=== PATIENT | female | born 1940 | race Caucasian/White ===

== ENCOUNTER → 2021-03-11 | Outpatient (CLI) | payer MEDICARE, OTHER ==
[~2021-03-11] MED LIST: MIRA3350 PO; SENN-52 PO
--- NOTE | 2021-03-11 16:05 | REP ---
INDICATION: PAIN IN THORACIC SPINE. COMPARISON: Chest radiograph 05/10/2012. TECHNIQUE: Three AP and lateral views thoracic spine. FINDINGS: There is increased thoracic kyphosis with moderate curvature of the thoracic spine convex to the right. There is no evidence of compression fracture. There is mild to moderate diffuse spurring of the vertebral bodies. There is mild to moderate diffuse disc space narrowing with subchondral sclerosis. There is diffuse osteopenia. Metallic clips are seen in the axillary soft tissues bilaterally. IMPRESSION: Osteopenia, diffuse degenerative changes, moderate right scoliosis and accentuated kyphosis. No acute fracture identified radiographically. <Electronically signed by Jamin Ahuja > 03/11/21 [id number]
--- NOTE | 2021-03-11 16:08 | REP ---
INDICATION: PAIN IN THORACIC SPINE. COMPARISON: Chest 05/10/2012. TECHNIQUE: Supine and erect views the abdomen, frontal view chest. FINDINGS: There is no evidence of free intraperitoneal air. There is no evidence of bowel obstruction. No dilated small bowel loops are seen. There is moderate fecal material in the rectosigmoid colon. Multiple phleboliths are seen in the pelvis. There are degenerative changes of the spine diffusely with curvature of the thoracic spine convex to the right and lumbar spine convex to the left. There is mild linear fibro atelectatic change in each lung base. There is mild cardiomegaly. IMPRESSION: No free air or obstruction. No infiltrate in either lung. <Electronically signed by Jamin Ahuja > 03/11/21 [id number]
[2021-03-11 17:20] LABS: BASO % 0.5 % (0.0-1.0); EOS # 0.1 10^3/uL (0.0-0.5); EOS % 1.5 % (0.0-3.0); HEMATOCRIT 25.6 % (36.0-47.0); LYMPH # 1.3 10^3/uL (1.5-5.0); LYMPH % 20.6 % (24.0-44.0); MEAN CORPUSCULAR HEMOGLOBIN 20.6 pg (27.0-33.0); MEAN CORPUSCULAR HGB CONC 27.3 g/dl (32.0-36.5); MEAN CORPUSCULAR VOLUME 75.5 fl (80.0-96.0); MONO # 0.7 10^3/uL (0.0-0.8); MONO % 11.4 % (2.0-8.0); NEUTROPHILS % 65.7 % (36.0-66.0); PLATELET COUNT, AUTOMATED 416 10^3/uL (150-450); RED BLOOD COUNT 3.39 10^6/uL (4.00-5.40); WHITE BLOOD COUNT 6.1 10^3/uL (4.0-10.0)
[2021-03-11 17:38] LABS: ALBUMIN 3.7 GM/DL (3.2-5.2); ALT/SGPT 23 U/L (12-78); BILIRUBIN,TOTAL 0.3 MG/DL (0.2-1.0); BLOOD UREA NITROGEN 18 MG/DL (7-18); CALCIUM LEVEL 8.6 MG/DL (8.8-10.2); CARBON DIOXIDE LEVEL 30 MEQ/L (21-32); CHLORIDE LEVEL 110 MEQ/L (98-107); CREATININE FOR GFR 0.72 MG/DL (0.55-1.30); GLOMERULAR FILTRATION RATE > 60.0 (>32); GLUCOSE, FASTING 79 MG/DL (70-100); POTASSIUM SERUM 4.3 MEQ/L (3.5-5.1); SODIUM LEVEL 144 MEQ/L (136-145); TOTAL PROTEIN 7.1 GM/DL (6.4-8.2)
[2021-03-11 17:39] LABS: FERRITIN 5 NG/ML (8-252); IRON (FE) 17 UG/DL (50-170); PERCENT SATURATION 3.2 % (13.2-45.0); TOTAL IRON BINDING CAPACITY 527 UG/DL (250-450)
[2021-03-11 17:53] LABS: ERYTHROCYTE SEDIMENTATION RATE 54 mm/hr (0-30)
== END ==
LOC: M PLAIMG 14:48
PROVIDERS: ATTEND Family Medicine
DX: M85.88 Other specified disorders of bone density and structure, other site (principal); M51.34 Other intervertebral disc degeneration, thoracic region; M41.9 Scoliosis, unspecified; K62.5 Hemorrhage of anus and rectum
CPT/HCPCS: 36415; 72072; 74021; 80053; 82270; 82728; 83550; 84443; 85025; 85652; 86140; G0463

== ENCOUNTER 2021-03-12 13:25 | Observation (INO) | payer OTHER ==
[2021-03-12] VITALS (8 sets, daily range): BP systolic 140–171; BP diastolic 69–99
[~2021-03-12] VITALS: Ht 149.9 cm; Wt 70.3 kg
[2021-03-12] MEDS ORDERED: MIRA3350 PO (13:36)
[2021-03-12] MEDS ORDERED: NS 500 ML IV ONE (14:15)
[2021-03-12 16:07] LABS: BASO % 0.6 % (0.0-1.0); EOS # 0.1 10^3/uL (0.0-0.5); EOS % 1.4 % (0.0-3.0); HEMATOCRIT 25.8 % (36.0-47.0); HEMOGLOBIN 7.2 g/dl (12.0-15.5); LYMPH # 1.3 10^3/uL (1.5-5.0); LYMPH % 27.3 % (24.0-44.0); MEAN CORPUSCULAR HEMOGLOBIN 20.6 pg (27.0-33.0); MEAN CORPUSCULAR HGB CONC 27.9 g/dl (32.0-36.5); MEAN CORPUSCULAR VOLUME 73.7 fl (80.0-96.0); MONO # 0.5 10^3/uL (0.0-0.8); MONO % 9.2 % (2.0-8.0); NEUTROPHILS % 61.1 % (36.0-66.0); PLATELET COUNT, AUTOMATED 422 10^3/uL (150-450); WHITE BLOOD COUNT 4.9 10^3/uL (4.0-10.0)
[2021-03-12 16:19] LABS: INR 0.97; PROTHROMBIN TIME 13.1 SECONDS (12.5-14.3)
[2021-03-12 16:20] LABS: PARTIAL THROMBOPLASTIN TIME 29.9 SECONDS (24.2-38.5)
[2021-03-12] MEDS ORDERED: MOM 30ML SUSPENSION UDC PO PRN (16:45)
[2021-03-12] MEDS ORDERED: ACETAMINOPHEN TAB 650MG DOSE (2X325MG) PO PRN (16:45)
[2021-03-12] MEDS ORDERED: MAALOX 30 ML SUSP *UDC PO PRN (16:45)
[2021-03-12] MEDS: GASTROGRAFIN SOLUTION 30ML PO SCH ×2 (16:45→17:30)
[2021-03-12] MEDS ORDERED: FLEET ENEMA PR PRN (17:20)
--- NOTE | 2021-03-12 17:21 | HPEPDOC ---
[facility] Medical History & Physical Date of Admission Mar 12, 2021 Date of Service: Mar 12, 2021 Primary Care Physician: JESSICA KERNS DO Attending Physician: MARGARET SUTHERLAND DO History and Physical CHIEF COMPLAINT: Anemia HISTORY OF PRESENT ILLNESS: Patient is an 80-year-old female who has not been seen by a doctor In many years and decided to establish care with a new PCP. She is accompanied in the room by her son who also provides some of the history. On routine lab work she was found to have anemia with a hemoglobin at 7.0. Repeat hemoglobin in the emergency department today is confirmatory and is at 7.2. Additionally she also reports that she suffers from chronic constipation, she estimates that she only has a bowel movement approximately every 4-6 weeks, and when she does it is quite painful. Both she and her son also mentioned that she does have blood in her bowel movements, and she does not know how long this has been going on for, but it sounds like it has been quite a while, perhaps months to years. Upon palpation of her abdomen she does have a few areas particularly in the left lower quadrant and the right mid quadrant that are tender to deep palpation. CODE STATUS: In the absence of a MOLST form, she is full code at this time. In speaking with her and her son she may want to be DNR or DNI, but they will discuss this issue amongst themselves and also with her primary care provider. PAST MEDICAL HISTORY: Remote history of breast cancer status post chemo, radiation, and bilateral mastectomy Back fracture 60 years ago PAST SURGICAL HISTORY: Bilateral mastectomy 2010 SOCIAL HISTORY: Denies tobacco use, alcohol use, or illicit drug use. FAMILY HISTORY: Noncontributory due to the patient's advanced age. Per medical record isabel arently she does have a sister with breast cancer as well as tongue cancer REVIEW OF SYSTEMS: Constitutional: Patient denies fevers, chills, night sweats, recent weight gain/loss. HEENT: Patient denies blurred or double vision, transient visual disturbances, postnasal drip, epistaxis, sore throat, difficulty chewing or swallowing food. Cardiovascular: Patient denies chest discomfort/pain, palpitations, exertional dyspnea, orthopnea, edema of the extremities, claudication. Respiratory: Patient denies dyspnea, wheezing, cough, hemoptysis, sputum production. Gastrointestinal: Patient denies nausea, vomiting, diarrhea. she does admit to constipation, abdominal pain, hematochezia. PHYSICAL EXAMINATION: General: Awake, alert, she appears to be a fairly good historian. She is in no acute distress at this time. HEENT: Head normocephalic atraumatic, conjunctiva are pink, sclera are nonicteric, buccal mucosa is pink and moist with no lesions in the oropharynx. Hearing is grossly intact to conversation. Respiratory: Clear to auscultation bilaterally with no wheezes, rales, or rhonchi. Cardiovascular: Regular rate and rhythm, with no rubs, gallops, or murmur. Abdomen: Soft, minimally tender in the left lower quadrant in the right middle quadrant to deep palpation nondistended, no hepatosplenomegaly appreciated. Bowel sounds present. Extremities: 2+ pulses in the radial and dorsalis pedis bilaterally. No evidence of clubbing or cyanosis. IMAGING: CT of the abdomen and pelvis has been ordered by the ED provider, results are not back yet for this. ASSESSMENT: Severe anemia Constipation Abdominal pain Rectal bleeding DVT prohylaxis: Teds and Sequentials given bleeding risk PLAN: We will admit the patient to [facility] under observation status at this time. CT scan of the abdomen is pending. Will order 2 units of blood, and recheck labs in the morning. Pending the results of the CT scan, she may need colonoscopy, however since she is stable I suspect that we might be able to do this as an outpatient. Nevertheless, given her significant constipation, will start her on Senokot-S and milk of magnesia, and she may also have an enema if she would like help with starting a bowel movement. Vital Signs Vital Signs Date Time Temp Pulse Resp B/P (MAP) Pulse Ox O2 Delivery O2 Flow Rate FiO2 03/12/21 13:25 97.4 79 20 146/91 (109) 99 Room Air Laboratory Data Labs 24H Laboratory Tests 2 03/12/21 14:49: Coronavirus (COVID-19)(PCR) NEGATIVE 03/12/21 15:51: Immature Granulocyte % (Auto) 0.4, Neutrophils (%) (Auto) 61.1, Lymphocytes (%) (Auto) 27.3, Monocytes (%) (Auto) 9.2H, Eosinophils (%) (Auto) 1.4, Basophils (%) (Auto) 0.6, Neutrophils # (Auto) 3.0, Lymphocytes # (Auto) 1.3L, Monocytes # (Auto) 0.5, Eosinophils # (Auto) 0.1, Basophils # (Auto) 0.0, Nucleated Red Blood Cells % (auto) 0.0, Prothrombin Time 13.1, Prothromb Time International Ratio 0.97, Activated Partial Thromboplast Time 29.9 03/12/21 16:03: POC Glucose (Misc Panel) 87, POC Sodium (Misc Panel) 141, POC Potassium (Misc Panel) 4.0, POC Chloride (Misc Panel) 103, POC Total CO2 (Misc Panel) 27.0, POC Blood Urea Nitrogen (Misc Panel 19, POC Ionized Calcium (Misc Panel) 4.8, POC Creatinine (Misc Panel) 0.6, POC Hematocrit (Misc Panel) 25.0L CBC/BMP Laboratory Tests 03/12/21 15:51 Home Medications Scheduled PRN Polyethylene Glycol 3350 (Miralax) 119 Gm Powder, 17 GRAM PO DAILY PRN for CONSTIPATION dissolve in water Allergies Coded Allergies: No Known Allergies (Unverified , 03/12/21) A-FIB/CHADSVASC A-FIB History Current/History of A-Fib/PAF?: No MARGARET SUTHERLAND DO Mar 12, 2021 17:21
[2021-03-12] MEDS ORDERED: ISOVUE-370 76% 100ML VIAL As Ordered ONE (17:50)
[2021-03-12] MEDS ORDERED: MIRALAX *UNIT DOSE* 17GM PACKET PO PRN (18:40)
--- NOTE | 2021-03-12 18:43 | REPVR ---
PROCEDURE INFORMATION: Exam: CT Abdomen And Pelvis With Contrast Exam date and time: 03/12/2021 6:15 PM Age: 80 years old Clinical indication: Abdominal pain; Additional info: Abd pain, anemia TECHNIQUE: Imaging protocol: Computed tomography of the abdomen and pelvis with contrast. Radiation optimization: All CT scans at this facility use at least one of these dose optimization techniques: automated exposure control; mA and/or kV adjustment per patient size (includes targeted exams where dose is matched to clinical indication); or iterative reconstruction. Contrast material: ISOVUE 370; Contrast volume: 100 ml; Contrast route: INTRAVENOUS (IV); COMPARISON: CR Abdomen,Flat Upright,PA CHEST 03/11/2021 3:20 PM FINDINGS: Lungs: No suspicious mass or airspace process in the visualized lung bases. Liver: Liver appears normal with no focal abnormality. Gallbladder and bile ducts: Gallbladder is present and shows no evidence of gallstone. Pancreas: Pancreas appears normal. No focal mass or peripancreatic inflammation. Spleen: Spleen appears homogeneous without focal mass. Adrenal glands: Adrenal glands are normal in appearance. Kidneys and ureters: Kidneys appear normal, with no stone, solid mass or hydronephrosis. Stomach and bowel: No evidence of small bowel obstruction. Large volume of stool is seen throughout the colon. Terminal ileum has normal appearance. Diverticular changes are present within the colon without inflammation. Appendix: No evidence of appendicitis. Intraperitoneal space: No pneumoperitoneum. Vasculature: Atherosclerotic change present in the aorta, without aneurysm. Main portal and splenic veins enhance normally. Lymph nodes: No enlarged lymph nodes. Urinary bladder: Urinary bladder appears normal. Reproductive: Female reproductive organs appear unremarkable. Bones/joints: Bony structures are normal except for lumbar spine degenerative disc changes. Soft tissues: No intra-abdominal hematoma. No pelvic hematoma. Other findings: No evidence of hypovolemia IMPRESSION: 1. No acute surgical or inflammatory intra-abdominal or pelvic process. No explanation for anemia and acute abdominal pain. 2. Colonic diverticulosis without evidence of active inflammation 3. Prominent colonic stool, suggesting perhaps an element of constipation Electronically signed by: Corey Pedroza On 03/12/2021 18:43:08 PM
[2021-03-12] MEDS: SENOKOT S TAB PO SCH (20:37)
[2021-03-13 00:33] VITALS: BP 141/71
[2021-03-13 01:22] VITALS: BP 144/67
[2021-03-13 02:22] VITALS: BP 143/65
[2021-03-13 06:57] LABS: HEMATOCRIT 32.9 % (36.0-47.0); MEAN CORPUSCULAR HEMOGLOBIN 22.9 pg (27.0-33.0); MEAN CORPUSCULAR HGB CONC 30.4 g/dl (32.0-36.5); MEAN CORPUSCULAR VOLUME 75.5 fl (80.0-96.0); PLATELET COUNT, AUTOMATED 390 10^3/uL (150-450); RED BLOOD COUNT 4.36 10^6/uL (4.00-5.40); WHITE BLOOD COUNT 6.8 10^3/uL (4.0-10.0)
[2021-03-13 07:13] LABS: BLOOD UREA NITROGEN 22 MG/DL (7-18); CALCIUM LEVEL 8.7 MG/DL (8.8-10.2); CARBON DIOXIDE LEVEL 27 MEQ/L (21-32); CHLORIDE LEVEL 109 MEQ/L (98-107); CREATININE FOR GFR 0.71 MG/DL (0.55-1.30); GLOMERULAR FILTRATION RATE > 60.0 (>32); GLUCOSE, FASTING 79 MG/DL (70-100); POTASSIUM SERUM 4.4 MEQ/L (3.5-5.1); SODIUM LEVEL 143 MEQ/L (136-145)
[2021-03-13] MEDS: SENOKOT S TAB PO SCH (08:12)
[2021-03-13] MEDS ORDERED: SENN-52 PO (08:30)
[2021-03-13] MEDS ORDERED: ENOXAPARIN 40MG/0.4ML SYRINGE (J1650 PER 10MG) SC SCH (09:00)
--- NOTE | 2021-03-13 11:15 | DS.PDOC ---
Discharge Summary General Date of Admission Mar 12, 2021 at 13:26 Date of Discharge 03/13/2021 Discharge Summary PRIMARY CARE PHYSICIAN: Dr. Gerson Mensah DO ATTENDING AT TIME OF DISCHARGE: Dr. Margaret Sutherland DO DISCHARGE DIAGNOS(E)S: Severe microcytic anemia, consistent with iron deficiency anemia, most likely secondary to blood loss. Constipation Abdominal pain Rectal bleeding with a history of hemorrhoids HPI & HOSPITAL COURSE: Patient had not seen a primary care provider for almost a decade, and decided to establish care. On routine laboratory examination it was found that she had severe anemia with a hemoglobin at 7.0. This was confirmed when she presented to the ER on the following day where her hemoglobin was found to be 7.2. She does have a longstanding history of constipation, she reports that she only has a bowel movement approximately every 4-6 weeks, and when she does it is quite painful and she does notice some blood with her stool as well. She does not notice any bleeding in the interim. Fecal occult digital rectal examination were performed in the emergency department which confirmed the presence of blood and hemorrhoids. Iron studies show a low iron, elevated TIBC, and low ferritin which is consistent with iron deficiency anemia, and correlating this with her history it is most likely secondary to blood loss with bowel movements. CT scan of the abdomen and pelvis were both oral and IV contrast was performed and there was no obvious etiology for anemia and acute abdominal pain. Nevertheless, I still recommend that she be started on stool softeners (Miralax had already been ordered by her PCP, I will also send a script to her pharmacy for Senokot S), a nd would also recommend that she be scheduled for an outpatient colonoscopy. PHYSICAL EXAMINATION ON DISCHARGE: GENERAL: Awake, alert. She is in no acute distress at this time. CARDIOVASCULAR EXAMINATION: Regular rate and rhythm, with no rubs, gallops, or murmur. RESPIRATORY EXAMINATION: Clear to auscultation bilaterally with no wheezes, rales, or rhonchi. ABDOMINAL EXAMINATION: Soft, minimally tender, nondistended. Bowel sounds present. EXTREMITIES: No clubbing or edema noted. 2+ pulses in the radial bilaterally. DISPOSITION: Home DISCHARGE INSTRUCTIONS: Follow-up with primary care physician within 7-10 days. Diet and activity as tolerated. If symptoms return, or if you experience worsening of your symptoms, please call your doctor or return to the emergency department. ITEMS THAT NEED OUTPATIENT FOLLOWUP: Treatment for constipation Recommend outpatient colonoscopy Follow-up regarding iron deficiency anemia, most likely secondary to blood loss Vital Signs/I&Os Vital Signs Date Time Temp Pulse Resp B/P (MAP) Pulse Ox O2 Delivery O2 Flow Rate FiO2 03/13/21 02:22 97.8 81 14 143/65 98 Room Air I&O- Last 24 Hours up to 6 AM 03/13/21 05:59 Intake Total 1700 ml Output Total 0 ml Balance 1700 ml Laboratory Data Labs 24H Laboratory Tests 2 03/12/21 14:49: Coronavirus (COVID-19)(PCR) NEGATIVE 03/12/21 15:51: Immature Granulocyte % (Auto) 0.4, Neutrophils (%) (Auto) 61.1, Lymphocytes (%) (Auto) 27.3, Monocytes (%) (Auto) 9.2H, Eosinophils (%) (Auto) 1.4, Basophils (%) (Auto) 0.6, Neutrophils # (Auto) 3.0, Lymphocytes # (Auto) 1.3L, Monocytes # (Auto) 0.5, Eosinophils # (Auto) 0.1, Basophils # (Auto) 0.0, Nucleated Red Blood Cells % (auto) 0.0, Prothrombin Time 13.1, Prothromb Time International Ratio 0.97, Activated Partial Thromboplast Time 29.9 03/12/21 16:03: POC Glucose (Misc Panel) 87, POC Sodium (Misc Panel) 141, POC Potassium (Misc Panel) 4.0, POC Chloride (Misc Panel) 103, POC Total CO2 (Misc Panel) 27.0, POC Blood Urea Nitrogen (Misc Panel 19, POC Ionized Calcium (Misc Panel) 4.8, POC Creatinine (Misc Panel) 0.6, POC Hematocrit (Misc Panel) 25.0L 03/13/21 06:22: Nucleated Red Blood Cells % (auto) 0.0, Anion Gap 7L, Glomerular Filtration Rate > 60.0, Calcium Level 8.7L CBC/BMP Laboratory Tests 03/12/21 15:51 03/13/21 06:22 Discharge Medications Scheduled Sennosides/Docusate Sodium (Senna Plus Tablet) 1 Each Tablet, 2 TAB PO DAILY Scheduled PRN Polyethylene Glycol 3350 (Miralax) 119 Gm Powder, 17 GRAM PO DAILY PRN for CONSTIPATION, (Reported) dissolve in water Allergies Coded Allergies: No Known Allergies (Unverified , 03/12/21) MARGARET SUTHERLAND DO Mar 13, 2021 11:07
--- NOTE | 2021-03-13 21:20 | ECGEPIP ---
[facility] - ED Test Date: 2021-03-12 Pat Name: SANFORD ABBASI Department: Room: - Gender: Female Payroll And Benefits Specialist: CESAR : 1940 Requested By: FRANCINE LOU PA-C. Order Number: [id number] Reading MD: Gloria Goodson Measurements Intervals [place] Rate: 54 P: 23 RI: 146 QRS: 3 QRSD: 86 T: 20 QT: 462 QTc: 438 Interpretive Statements Sinus bradycardia NSTTW abnormalities No prior Electronically Signed on 03-13-2021 21:20:30 EDT by Gloria Goodson
== END 2021-03-13 11:38 | disposition home or self-care (01) ==
LOC: M ED 13:25 → M ED INP 13:26 → M MSPAV 18:50
PROVIDERS: ADMIT Internal Medicine; ATTEND Neuromusculoskeletal Medicine & OMM
DX: D50.9 Iron deficiency anemia, unspecified (principal); K59.09 Other constipation; R10.9 Unspecified abdominal pain; K62.5 Hemorrhage of anus and rectum; R00.1 Bradycardia, unspecified; Z87.19 Personal history of other diseases of the digestive system; Z85.3 Personal history of malignant neoplasm of breast; Z90.13 Acquired absence of bilateral breasts and nipples; Z79.899 Other long term (current) drug therapy; Z87.81 Personal history of (healed) traumatic fracture
CPT/HCPCS: 36415; 36430; 74177; 80047; 80048; 85025; 85027; 85610; 85730; 86850; 86900; 86901; 86920; 93005; 93041; 99285; G0378; P9016; Q9963; Q9967; U0002

== ENCOUNTER → 2021-06-15 | Outpatient (CLI) | payer MEDICARE ==
[2021-06-15 18:01] LABS: BASO # 0.1 10^3/uL (0.0-0.2); BASO % 0.9 % (0.0-1.0); EOS % 0.7 % (0.0-3.0); HEMATOCRIT 35.3 % (36.0-47.0); HEMOGLOBIN 10.7 g/dl (12.0-15.5); LYMPH # 1.3 10^3/uL (1.5-5.0); LYMPH % 22.9 % (24.0-44.0); MEAN CORPUSCULAR HEMOGLOBIN 26.8 pg (27.0-33.0); MEAN CORPUSCULAR HGB CONC 30.3 g/dl (32.0-36.5); MEAN CORPUSCULAR VOLUME 88.3 fl (80.0-96.0); MONO # 0.5 10^3/uL (0.0-0.8); MONO % 8.5 % (2.0-8.0); NEUTROPHILS # 3.9 10^3/uL (1.5-8.5); NEUTROPHILS % 66.8 % (36.0-66.0); PLATELET COUNT, AUTOMATED 337 10^3/uL (150-450); WHITE BLOOD COUNT 5.8 10^3/uL (4.0-10.0)
[2021-06-15 18:53] LABS: BLOOD UREA NITROGEN 22 MG/DL (7-18); CREATININE FOR GFR 0.66 MG/DL (0.55-1.30); FERRITIN 8 NG/ML (8-252); GLOMERULAR FILTRATION RATE > 60.0 (>32); IRON (FE) 38 UG/DL (50-170); PERCENT SATURATION 7.5 % (13.2-45.0); TOTAL IRON BINDING CAPACITY 508 UG/DL (250-450)
[2021-06-15 19:00] LABS: VITAMIN B12 LEVEL 269 PG/ML
[2021-06-15 19:02] LABS: FOLATE 12.9 NG/ML
== END ==
LOC: M PLALAB 14:46
PROVIDERS: ATTEND Internal Medicine Gastroenterology
DX: K62.5 Hemorrhage of anus and rectum (principal)
CPT/HCPCS: 36415; 82565; 82607; 82728; 82746; 83550; 84520; 85025; G0463

== ENCOUNTER → 2021-08-25 | Outpatient (CLI) | payer MEDICARE | LOC: M LABSMTC 10:56 | PROVIDERS: ATTEND Anesthesiology | DX: Z01.812 Encounter for preprocedural laboratory examination (principal); Z11.52 Encounter for screening for COVID-19 ==

== ENCOUNTER 2021-08-30 10:18 | Day surgery (SDC) | payer MEDICARE ==
[~2021-08-30] VITALS: Ht 160 cm; Wt 67.1 kg
[~2021-08-30 10:18] MED LIST changes: +NS 1,000 ML IV ONE
[2021-08-30] MEDS ORDERED: LIDOCAINE 2% 100MG/5ML SDV (FOR ANES.) As Ordered ONE (11:32)
[2021-08-30] MEDS ORDERED: propofoL 200 MG/20 ML VIAL As Ordered ONE ×2 (11:32→11:56)
[2021-08-30] MEDS ORDERED: GLYCOPYRROLATE INJ 0.2 MG/ML 2 ML VIAL As Ordered ONE (11:32)
[2021-08-30 13:10] VITALS: BP 159/72
== END 2021-08-30 13:40 | disposition home or self-care (01) ==
LOC: M OPP 10:18
PROVIDERS: ATTEND Internal Medicine Gastroenterology
DX: K57.30 Diverticulosis of large intestine without perforation or abscess without bleeding (principal); K64.8 Other hemorrhoids; D50.9 Iron deficiency anemia, unspecified; R19.4 Change in bowel habit; K31.89 Other diseases of stomach and duodenum; K44.9 Diaphragmatic hernia without obstruction or gangrene; K21.00 Gastro-esophageal reflux disease with esophagitis, without bleeding

== ENCOUNTER → 2021-10-14 | Outpatient (CLI) | payer MEDICARE ==
[~2021-10-14] MED LIST changes: -NS 1,000 ML IV ONE
[2021-10-14 17:00] LABS: BASO % 0.3 % (0.0-1.0); EOS # 0.1 10^3/uL (0.0-0.5); EOS % 1.5 % (0.0-3.0); HEMATOCRIT 31.2 % (36.0-47.0); HEMOGLOBIN 9.5 g/dl (12.0-15.5); LYMPH # 1.6 10^3/uL (1.5-5.0); LYMPH % 26.2 % (24.0-44.0); MEAN CORPUSCULAR HEMOGLOBIN 26.2 pg (27.0-33.0); MEAN CORPUSCULAR HGB CONC 30.4 g/dl (32.0-36.5); MEAN CORPUSCULAR VOLUME 86.2 fl (80.0-96.0); MONO # 0.6 10^3/uL (0.0-0.8); NEUTROPHILS # 3.7 10^3/uL (1.5-8.5); NEUTROPHILS % 61.5 % (36.0-66.0); PLATELET COUNT, AUTOMATED 375 10^3/uL (150-450); RED BLOOD COUNT 3.62 10^6/uL (4.00-5.40); WHITE BLOOD COUNT 6.1 10^3/uL (4.0-10.0)
[2021-10-14 17:29] LABS: ALBUMIN 3.9 GM/DL (3.2-5.2); ALT/SGPT 21 U/L (12-78); BILIRUBIN,TOTAL 0.4 MG/DL (0.2-1.0); BLOOD UREA NITROGEN 25 MG/DL (7-18); CALCIUM LEVEL 9.2 MG/DL (8.8-10.2); CARBON DIOXIDE LEVEL 29 MEQ/L (21-32); CHLORIDE LEVEL 107 MEQ/L (98-107); CREATININE FOR GFR 0.64 MG/DL (0.55-1.30); FERRITIN 8 NG/ML (8-252); GLOMERULAR FILTRATION RATE > 60.0 (>32); GLUCOSE, FASTING 77 MG/DL (70-100); IRON (FE) 29 UG/DL (50-170); PERCENT SATURATION 5.4 % (13.2-45.0); POTASSIUM SERUM 4.2 MEQ/L (3.5-5.1); SODIUM LEVEL 142 MEQ/L (136-145); TOTAL IRON BINDING CAPACITY 536 UG/DL (250-450); TOTAL PROTEIN 7.4 GM/DL (6.4-8.2)
== END ==
LOC: M PLALAB 15:18
PROVIDERS: ATTEND Family Medicine
DX: D50.0 Iron deficiency anemia secondary to blood loss (chronic) (principal)

== ENCOUNTER → 2021-10-26 | Outpatient (CLI) | payer MEDICARE | LOC: M RAD 16:20 | PROVIDERS: ATTEND Family Medicine | DX: R22.1 Localized swelling, mass and lump, neck (principal) ==

== ENCOUNTER 2022-04-18 12:55 | Inpatient (IN) | payer MEDICARE ==
[2022-04-18 13:44] LABS: BASO % 0.7 % (0.0-1.0); EOS # 0.1 10^3/uL (0.0-0.5); EOS % 1.7 % (0.0-3.0); HEMATOCRIT 24.3 % (36.0-47.0); LYMPH # 1.2 10^3/uL (1.5-5.0); MEAN CORPUSCULAR HEMOGLOBIN 18.6 pg (27.0-33.0); MEAN CORPUSCULAR HGB CONC 26.7 g/dl (32.0-36.5); MEAN CORPUSCULAR VOLUME 69.4 fl (80.0-96.0); MONO # 0.5 10^3/uL (0.0-0.8); MONO % 7.8 % (2.0-8.0); NEUTROPHILS % 69.6 % (36.0-66.0); PLATELET COUNT, AUTOMATED 433 10^3/uL (150-450); WHITE BLOOD COUNT 5.8 10^3/uL (4.0-10.0)
[2022-04-18 13:47] LABS: HEMOGLOBIN 6.5 g/dl (12.0-15.5)
[2022-04-18 14:14] LABS: RSV AMPLIFICATION NEGATIVE (NEGATIVE)
[2022-04-18 14:17] LABS: CK-MB VALUE MASS 3.5 NG/ML (<3.6); MB/CK RELATIVE INDEX 2.45 (< OR =4)
[2022-04-18 14:37] LABS: ALBUMIN 3.6 GM/DL (3.2-5.2); BILIRUBIN,DIRECT 0.2 MG/DL (0.0-0.2); BILIRUBIN,TOTAL 0.5 MG/DL (0.2-1.0); CREATININE FOR GFR 1.35 MG/DL (0.55-1.30); GLOMERULAR FILTRATION RATE 40.1 (>32); POTASSIUM SERUM 4.3 MEQ/L (3.5-5.1); THYROID STIMULATING HORMONE 1.29 uIU/ML (0.358-3.740); TOTAL PROTEIN 6.8 GM/DL (6.4-8.2)
[2022-04-18] MEDS ORDERED: ACETAMINOPHEN TAB 650MG DOSE (2X325MG) PO PRN (15:55)
[2022-04-18] MEDS ORDERED: MOM 30ML SUSPENSION UDC PO PRN (15:55)
[2022-04-18 16:15] VITALS: BP 145/63
[2022-04-18] MEDS ORDERED: HOME MED LIST COMPLETE! XX SCH (17:10)
[2022-04-18 17:42] LABS: INR 1.04; PARTIAL THROMBOPLASTIN TIME 31.3 SECONDS (25.9-37.0)
[2022-04-18] MEDS ORDERED: IRON SUCROSE 200 MG in NS 100 ML IV SCH (18:00)
[2022-04-18] MEDS: NS 1,000 ML IV SCH (18:06)
[2022-04-18 18:14] LABS: PERCENT SATURATION 4.3 % (13.2-45.0)
[2022-04-18 18:15] VITALS: BP 145/71
[2022-04-18 18:34] VITALS: BP 152/83
[2022-04-18 19:09] VITALS: BP 184/92
[2022-04-18 20:05] VITALS: BP 146/78
[2022-04-18] MEDS ORDERED: DOCUSATE SODIUM 100MG CAPSULE PO SCH (21:00)
[2022-04-18] MEDS: RAMELTEON 8 MG TAB (ROZEREM) PO PRN (21:27)
[2022-04-18] MEDS: SENNA 8.6 MG TAB (SENOKOT) PO SCH (21:27)
[2022-04-18 21:35] VITALS: BP 135/69
[2022-04-18 22:42] LABS: HEMATOCRIT 27.4 % (36.0-47.0); HEMOGLOBIN 8.1 g/dl (12.0-15.5); MEAN CORPUSCULAR HEMOGLOBIN 21.3 pg (27.0-33.0); MEAN CORPUSCULAR HGB CONC 29.6 g/dl (32.0-36.5); MEAN CORPUSCULAR VOLUME 72.1 fl (80.0-96.0); PLATELET COUNT, AUTOMATED 336 10^3/uL (150-450); WHITE BLOOD COUNT 6.5 10^3/uL (4.0-10.0)
[2022-04-19] MEDS: NS 1,000 ML IV SCH (04:43)
[2022-04-19 06:00] VITALS: BP 147/64
[2022-04-19 06:24] LABS: HEMATOCRIT 26.9 % (36.0-47.0); HEMOGLOBIN 7.8 g/dl (12.0-15.5); MEAN CORPUSCULAR HEMOGLOBIN 20.9 pg (27.0-33.0); MEAN CORPUSCULAR VOLUME 72.1 fl (80.0-96.0); PLATELET COUNT, AUTOMATED 320 10^3/uL (150-450); RED BLOOD COUNT 3.73 10^6/uL (4.00-5.40); WHITE BLOOD COUNT 5.8 10^3/uL (4.0-10.0)
[2022-04-19 07:02] LABS: CALCIUM LEVEL 8.4 MG/DL (8.8-10.2); CREATININE FOR GFR 0.98 MG/DL (0.55-1.30); POTASSIUM SERUM 4.1 MEQ/L (3.5-5.1)
[2022-04-19] MEDS ORDERED: BISACODYL 10 MG SUPP PR ONE (09:00)
[2022-04-19] MEDS: IRON SUCROSE 200 MG in NS 100 ML IV SCH (09:35)
[2022-04-19 14:00] VITALS: BP 151/65
[2022-04-19 20:00] VITALS: BP 144/68
[2022-04-19] MEDS: RAMELTEON 8 MG TAB (ROZEREM) PO PRN (22:22)
[2022-04-19] MEDS: SENNA 8.6 MG TAB (SENOKOT) PO SCH (22:22)
[2022-04-20 05:04] VITALS: BP 148/60
[2022-04-20 06:03] LABS: HEMATOCRIT 26.5 % (36.0-47.0); HEMOGLOBIN 7.8 g/dl (12.0-15.5); MEAN CORPUSCULAR HEMOGLOBIN 21.1 pg (27.0-33.0); MEAN CORPUSCULAR HGB CONC 29.4 g/dl (32.0-36.5); MEAN CORPUSCULAR VOLUME 71.8 fl (80.0-96.0); PLATELET COUNT, AUTOMATED 325 10^3/uL (150-450); RED BLOOD COUNT 3.69 10^6/uL (4.00-5.40); WHITE BLOOD COUNT 5.5 10^3/uL (4.0-10.0)
[2022-04-20 06:26] LABS: BLOOD UREA NITROGEN 20 MG/DL (7-18); CALCIUM LEVEL 8.5 MG/DL (8.8-10.2); CARBON DIOXIDE LEVEL 25 MEQ/L (21-32); CHLORIDE LEVEL 112 MEQ/L (98-107); CREATININE FOR GFR 0.74 MG/DL (0.55-1.30); GLOMERULAR FILTRATION RATE > 60.0 (>32); GLUCOSE, FASTING 81 MG/DL (70-100); POTASSIUM SERUM 3.9 MEQ/L (3.5-5.1); SODIUM LEVEL 142 MEQ/L (136-145)
[2022-04-20] MEDS: IRON SUCROSE 200 MG in NS 100 ML IV SCH (10:00)
[2022-04-20] MEDS ORDERED: LORazepam 2 MG/ML VIAL IV STA (11:14)
[2022-04-20] MEDS ORDERED: LORazepam 2 MG/ML VIAL As Ordered ONE (11:23)
[2022-04-20 14:00] VITALS: BP 156/71
[2022-04-20] MEDS ORDERED: ISOVUE-370 76% 100ML VIAL As Ordered ONE ×2 (19:56→21:14)
[2022-04-20 20:00] VITALS: BP 158/80
[2022-04-20 21:15] LABS: CHOLESTEROL RISK RATIO 2.621 (<5)
[2022-04-20] MEDS: CLOPIDOGREL 75 MG TAB PO SCH (21:50)
[2022-04-20] MEDS: ASPIRIN 81MG ENTERIC TABLET PO SCH (21:50)
[2022-04-20] MEDS: ATORVASTATIN 20 MG TAB PO SCH (21:51)
[2022-04-20] MEDS: SENNA 8.6 MG TAB (SENOKOT) PO SCH (21:51)
[2022-04-21 06:00] VITALS: BP 140/60
[2022-04-21 06:26] LABS: HEMATOCRIT 28.1 % (36.0-47.0); HEMOGLOBIN 8.6 g/dl (12.0-15.5); MEAN CORPUSCULAR HEMOGLOBIN 22.1 pg (27.0-33.0); MEAN CORPUSCULAR HGB CONC 30.6 g/dl (32.0-36.5); MEAN CORPUSCULAR VOLUME 72.2 fl (80.0-96.0); PLATELET COUNT, AUTOMATED 331 10^3/uL (150-450); RED BLOOD COUNT 3.89 10^6/uL (4.00-5.40); WHITE BLOOD COUNT 6.1 10^3/uL (4.0-10.0)
[2022-04-21 06:56] LABS: BLOOD UREA NITROGEN 14 MG/DL (7-18); CALCIUM LEVEL 8.5 MG/DL (8.8-10.2); CARBON DIOXIDE LEVEL 26 MEQ/L (21-32); CHLORIDE LEVEL 110 MEQ/L (98-107); CREATININE FOR GFR 0.72 MG/DL (0.55-1.30); GLOMERULAR FILTRATION RATE > 60.0 (>32); GLUCOSE, FASTING 74 MG/DL (70-100); POTASSIUM SERUM 3.7 MEQ/L (3.5-5.1); SODIUM LEVEL 142 MEQ/L (136-145)
[2022-04-21] MEDS: ASPIRIN 81MG ENTERIC TABLET PO SCH (08:46)
[2022-04-21] MEDS: CLOPIDOGREL 75 MG TAB PO SCH (08:46)
[2022-04-21] MEDS: ATORVASTATIN 20 MG TAB PO SCH (08:46)
[2022-04-21] MEDS: IRON SUCROSE 200 MG in NS 100 ML IV SCH (08:48)
[2022-04-21] MEDS: ASPIRIN 81 MG CHEW TABLET PO SCH (09:36)
[2022-04-21 14:00] VITALS: BP 134/61
[2022-04-21 19:38] VITALS: BP 138/62
[2022-04-21 20:30] VITALS: BP 157/68
[2022-04-21] MEDS: SENNA 8.6 MG TAB (SENOKOT) PO SCH (21:03)
[2022-04-21] MEDS: RAMELTEON 8 MG TAB (ROZEREM) PO PRN (21:03)
[2022-04-22 04:00] VITALS: BP 156/69
[2022-04-22 05:57] LABS: HEMOGLOBIN 8.5 g/dl (12.0-15.5); MEAN CORPUSCULAR HEMOGLOBIN 20.7 pg (27.0-33.0); MEAN CORPUSCULAR HGB CONC 28.3 g/dl (32.0-36.5); PLATELET COUNT, AUTOMATED 302 10^3/uL (150-450); RED BLOOD COUNT 4.11 10^6/uL (4.00-5.40); WHITE BLOOD COUNT 5.9 10^3/uL (4.0-10.0)
[2022-04-22 06:23] LABS: BLOOD UREA NITROGEN 19 MG/DL (7-18); CALCIUM LEVEL 8.9 MG/DL (8.8-10.2); CARBON DIOXIDE LEVEL 25 MEQ/L (21-32); CHLORIDE LEVEL 109 MEQ/L (98-107); CREATININE FOR GFR 0.85 MG/DL (0.55-1.30); GLOMERULAR FILTRATION RATE > 60.0 (>32); GLUCOSE, FASTING 74 MG/DL (70-100); MAGNESIUM LEVEL 1.8 MG/DL (1.8-2.4); PHOSPHORUS LEVEL 2.9 MG/DL (2.5-4.9); POTASSIUM SERUM 3.9 MEQ/L (3.5-5.1); SODIUM LEVEL 141 MEQ/L (136-145)
[2022-04-22] MEDS: ASPIRIN 81 MG CHEW TABLET PO SCH (08:30)
[2022-04-22] MEDS: ATORVASTATIN 20 MG TAB PO SCH (08:30)
[2022-04-22] MEDS: CLOPIDOGREL 75 MG TAB PO SCH (08:30)
[2022-04-22] MEDS: SENOKOT S TAB PO SCH ×2 (08:30→20:01)
[2022-04-22 14:19] VITALS: BP 163/79
[2022-04-22 20:00] VITALS: BP 162/85
[2022-04-22] MEDS: HEPARIN SOD (PORCINE) 5000UNITS/ML 1ML VIAL/SYRINGE SQ SCH (20:01)
[2022-04-22] MEDS: RAMELTEON 8 MG TAB (ROZEREM) PO PRN (20:02)
[2022-04-23 06:00] VITALS: BP 163/87
[2022-04-23 06:09] LABS: HEMATOCRIT 28.9 % (36.0-47.0); HEMOGLOBIN 8.3 g/dl (12.0-15.5); MEAN CORPUSCULAR HEMOGLOBIN 21.3 pg (27.0-33.0); MEAN CORPUSCULAR HGB CONC 28.7 g/dl (32.0-36.5); MEAN CORPUSCULAR VOLUME 74.3 fl (80.0-96.0); PLATELET COUNT, AUTOMATED 292 10^3/uL (150-450); RED BLOOD COUNT 3.89 10^6/uL (4.00-5.40); WHITE BLOOD COUNT 5.3 10^3/uL (4.0-10.0)
[2022-04-23 06:43] LABS: ALBUMIN 2.8 GM/DL (3.2-5.2); ALT/SGPT 13 U/L (12-78); BILIRUBIN,TOTAL 0.4 MG/DL (0.2-1.0); BLOOD UREA NITROGEN 17 MG/DL (7-18); CALCIUM LEVEL 8.8 MG/DL (8.8-10.2); CARBON DIOXIDE LEVEL 27 MEQ/L (21-32); CHLORIDE LEVEL 110 MEQ/L (98-107); GLOMERULAR FILTRATION RATE > 60.0 (>32); GLUCOSE, FASTING 72 MG/DL (70-100); MAGNESIUM LEVEL 1.7 MG/DL (1.8-2.4); POTASSIUM SERUM 3.9 MEQ/L (3.5-5.1); SODIUM LEVEL 140 MEQ/L (136-145); TOTAL PROTEIN 5.5 GM/DL (6.4-8.2)
[2022-04-23] MEDS: ATORVASTATIN 20 MG TAB PO SCH (08:51)
[2022-04-23] MEDS: ASPIRIN 81 MG CHEW TABLET PO SCH (08:51)
[2022-04-23] MEDS: CLOPIDOGREL 75 MG TAB PO SCH (08:51)
[2022-04-23] MEDS: SENOKOT S TAB PO SCH (08:51)
[2022-04-23] MEDS: HEPARIN SOD (PORCINE) 5000UNITS/ML 1ML VIAL/SYRINGE SQ SCH (08:52)
[2022-04-23] MEDS ORDERED: MAGNESIUM OXIDE 400MG TAB (MAG-OX) PO ONE (09:00)
[2022-04-23] MEDS ORDERED: ASPI81CH8 PO (11:15)
[2022-04-23] MEDS ORDERED: CLOP75TA2 PO (11:15)
[2022-04-23] MEDS ORDERED: ATOR1TAB21 PO (11:15)
[2022-04-23] MEDS ORDERED: FERR325T3 PO (11:18)
== END 2022-04-23 14:21 | disposition home or self-care (01) | DRG 811 ==
LOC: M ED 12:55 → M ED INP 15:54 → M MSPAV 18:46
PROVIDERS: ADMIT Internal Medicine; ATTEND Family Medicine
PROC: 30233N1 Transfusion of Nonautologous Red Blood Cells into Peripheral Vein, Percutaneous Approach (ICD-10-PCS; principal; 2022-04-18)
DX: D50.9 Iron deficiency anemia, unspecified (principal); I63.532 Cerebral infarction due to unspecified occlusion or stenosis of left posterior cerebral artery; E78.5 Hyperlipidemia, unspecified; F02.80 Dementia in other diseases classified elsewhere, unspecified severity, without behavioral disturbance, psychotic disturbance, mood disturbance, and anxiety; Z85.3 Personal history of malignant neoplasm of breast; Z92.21 Personal history of antineoplastic chemotherapy; G30.9 Alzheimer's disease, unspecified; Z92.3 Personal history of irradiation; E86.0 Dehydration; Z66 Do not resuscitate; K59.00 Constipation, unspecified; Z87.19 Personal history of other diseases of the digestive system; Z91.14 Patient's other noncompliance with medication regimen; G47.00 Insomnia, unspecified; Z90.13 Acquired absence of bilateral breasts and nipples; R41.82 Altered mental status, unspecified; K59.09 Other constipation; Z79.899 Other long term (current) drug therapy

== ENCOUNTER 2023-03-10 08:55 | Inpatient (IN) | payer MEDICARE ==
[~2023-03-10] VITALS: Ht 160 cm; Wt 70.5 kg
[~2023-03-10 08:55] MED LIST changes: +ASPI81CH8 PO; +ATOR1TAB21 PO; +CLOP75TA2 PO; +FERR325T3 PO
[2023-03-10 13:28] LABS: HEMATOCRIT 41.9 % (36.0-47.0); HEMOGLOBIN 13.6 g/dl (12.0-15.5); MEAN CORPUSCULAR HEMOGLOBIN 30.6 pg (27.0-33.0); MEAN CORPUSCULAR HGB CONC 32.5 g/dl (32.0-36.5); MEAN CORPUSCULAR VOLUME 94.2 fl (80.0-96.0); PLATELET COUNT, AUTOMATED 243 10^3/uL (150-450); RED BLOOD COUNT 4.45 10^6/uL (4.00-5.40); WHITE BLOOD COUNT 8.8 10^3/uL (4.0-10.0)
[2023-03-10 13:40] LABS: ALBUMIN 4.1 G/DL (3.2-5.2); ALKALINE PHOSPHATASE 103 U/L (46-116); ALT/SGPT 19 U/L (7.0-40); AST/SGOT 21 U/L (<34); BILIRUBIN,DIRECT 0.3 MG/DL (<0.4); BILIRUBIN,TOTAL 1.2 MG/DL (0.3-1.2); BLOOD UREA NITROGEN 17 MG/DL (9-23); CALCIUM LEVEL 9.4 MG/DL (8.3-10.6); CARBON DIOXIDE LEVEL 28 MMOL/L (20-31); CHLORIDE LEVEL 104 MMOL/L (98-107); CREATININE FOR GFR 0.63 MG/DL (0.55-1.30); GLOMERULAR FILTRATION RATE > 60.0 (>32); GLUCOSE, FASTING 89 MG/DL (74-106); POTASSIUM SERUM 3.6 MMOL/L (3.5-5.1); SODIUM LEVEL 139 MMOL/L (136-145); TOTAL PROTEIN 7.7 G/DL (5.7-8.2)
[2023-03-10 13:47] LABS: RSV AMPLIFICATION NEGATIVE (NEGATIVE)
[2023-03-10 13:58] LABS: PROTHROMBIN TIME 13.4 SECONDS (12.5-14.5)
[2023-03-10 13:59] LABS: PARTIAL THROMBOPLASTIN TIME 28.7 SECONDS (24.8-34.2)
[2023-03-10] MEDS ORDERED: MORPHINE 2 MG/ML 1ML VIAL IV ONE (14:55)
[2023-03-10] MEDS ORDERED: MED REC IN PROGRESS XX SCH (15:20)
[2023-03-10] MEDS ORDERED: HOME MED LIST COMPLETE! XX SCH (16:35)
[2023-03-10] MEDS ORDERED: traMADol 50 MG TAB PO PRN (16:45)
[2023-03-10 17:15] VITALS: BP 145/90; TEMP 98.2; O2SAT 96
[2023-03-10] MEDS: amLODIPine 5 MG TAB PO SCH (17:32)
[2023-03-10] MEDS: MORPHINE 4 MG/ML 1ML VIAL IV PRN (17:40)
[2023-03-10 20:41] VITALS: BP 143/89; TEMP 98.1; O2SAT 96
[2023-03-10] MEDS ORDERED: LIDOCAINE 2% 100MG/5ML SDV (FOR ANES.) As Ordered ONE (22:42)
[2023-03-10] MEDS ORDERED: propofoL 200 MG/20 ML VIAL As Ordered ONE (22:42)
[2023-03-10] MEDS ORDERED: SUGAMMADEX SODIUM 500 MG/5 ML VIAL (BRIDION) As Ordered ONE (22:42)
[2023-03-10] MEDS ORDERED: ROCURONIUM BROMIDE 50MG/5ML VIAL As Ordered ONE (22:42)
[2023-03-10] MEDS ORDERED: ONDANSETRON 4MG 2ML VIAL As Ordered ONE (22:43)
[2023-03-10] MEDS ORDERED: fentaNYL 100 MCG/2 ML INJECTION As Ordered ONE (22:47)
[2023-03-10 23:01] VITALS: BP 153/88; TEMP 98.1; O2SAT 98
[2023-03-10] MEDS ORDERED: VANCOMYCIN 1000MG/20ML VIAL As Ordered ONE (23:03)
[2023-03-10] MEDS ORDERED: TRANEXAMIC ACID 100 MG/ML 10ML VIAL ONE ×2 (23:03→23:28)
[2023-03-10] MEDS ORDERED: VANCOMYCIN 1000MG/20ML VIAL ONE (23:03)
[2023-03-10] MEDS ORDERED: TRANEXAMIC ACID 100 MG/ML 10ML VIAL As Ordered ONE ×2 (23:03→23:28)
[2023-03-10] MEDS ORDERED: ACETAMINOPHEN 1000MG 100ML IV BAG As Ordered ONE (23:09)
[2023-03-10] MEDS ORDERED: ACETAMINOPHEN 1000MG 100ML IV BAG ONE (23:09)
[2023-03-10] MEDS ORDERED: ceFAZolin 2 GM/D5W 50 ML IV BAG As Ordered ONE (23:46)
[2023-03-10] MEDS ORDERED: ceFAZolin 2 GM/D5W 50 ML IV BAG ONE (23:46)
[2023-03-10] MEDS ORDERED: HYDROmorphone HCL 2MG/ML 1ML VIAL As Ordered ONE (23:54)
[2023-03-11] VITALS (14 sets, daily range): BP systolic 137–193; BP diastolic 60–102; TEMP 87.7–98.4; O2SAT 92–99
[2023-03-11] MEDS ORDERED: PHENYLephrine 500MCG 5ML (100MCG/ML) SYRINGE As Ordered ONE (00:02)
[2023-03-11] MEDS ORDERED: ePHEDrine SULFATE 25 MG/5 ML(5MG/ML) SYRINGE As Ordered ONE (00:02)
[2023-03-11] MEDS ORDERED: ROCURONIUM BROMIDE 50MG/5ML VIAL As Ordered ONE (00:14)
[2023-03-11] MEDS ORDERED: hydrALAZINE 20MG/ML 1ML VIAL As Ordered ONE (00:19)
[2023-03-11] MEDS ORDERED: ONDANSETRON 4MG 2ML VIAL IV PRN (00:40)
[2023-03-11] MEDS ORDERED: fentaNYL 100 MCG/2 ML INJECTION IV PRN (00:40)
[2023-03-11] MEDS ORDERED: LR 1,000 ML IV SCH (00:40)
[2023-03-11] MEDS ORDERED: HYDROMORPHONE HCL 0.5 MG/ 0.5 ML SYRINGE IV PRN (00:40)
[2023-03-11] MEDS ORDERED: oxyCODONE 5MG TAB PO PRN (00:40)
[2023-03-11] MEDS: LR 1,000 ML IV SCH ×3 (02:33→20:20)
[2023-03-11] MEDS: ONDANSETRON 4MG 2ML VIAL IV PRN ×2 (02:38→11:16)
[2023-03-11] MEDS: MORPHINE 4 MG/ML 1ML VIAL IV PRN ×3 (04:50→23:57)
[2023-03-11] MEDS ORDERED: HALOPERIDOL 5MG/ML 1ML VIAL IV ONE (05:30)
[2023-03-11 05:59] LABS: HEMATOCRIT 37.9 % (36.0-47.0); HEMOGLOBIN 12.2 g/dl (12.0-15.5); MEAN CORPUSCULAR HEMOGLOBIN 30.3 pg (27.0-33.0); MEAN CORPUSCULAR HGB CONC 32.2 g/dl (32.0-36.5); MEAN CORPUSCULAR VOLUME 94.3 fl (80.0-96.0); PLATELET COUNT, AUTOMATED 232 10^3/uL (150-450); RED BLOOD COUNT 4.02 10^6/uL (4.00-5.40); WHITE BLOOD COUNT 12.3 10^3/uL (4.0-10.0)
[2023-03-11 06:10] LABS: INR 0.98; PROTHROMBIN TIME 13.2 SECONDS (12.5-14.5)
[2023-03-11 06:36] LABS: ALBUMIN 3.4 G/DL (3.2-5.2); ALKALINE PHOSPHATASE 89 U/L (46-116); ALT/SGPT 15 U/L (7.0-40); AST/SGOT 21 U/L (<34); BILIRUBIN,TOTAL 0.8 MG/DL (0.3-1.2); BLOOD UREA NITROGEN 14 MG/DL (9-23); CALCIUM LEVEL 8.6 MG/DL (8.3-10.6); CARBON DIOXIDE LEVEL 24 MMOL/L (20-31); CHLORIDE LEVEL 102 MMOL/L (98-107); CREATININE FOR GFR 0.55 MG/DL (0.55-1.30); GLOMERULAR FILTRATION RATE > 60.0 (>32); GLUCOSE, FASTING 174 MG/DL (74-106); PHOSPHORUS LEVEL 3.3 MG/DL (2.4-5.1); POTASSIUM SERUM 3.6 MMOL/L (3.5-5.1); SODIUM LEVEL 138 MMOL/L (136-145); TOTAL PROTEIN 6.6 G/DL (5.7-8.2)
[2023-03-11] MEDS ORDERED: ENOXAPARIN 40MG/0.4ML SYRINGE (J1650 PER 10MG) SC SCH (09:00)
[2023-03-11] MEDS: ceFAZolin SOD 2 GM in IV 1 EA IV SCH ×3 (09:20→23:58)
[2023-03-11] MEDS: amLODIPine 5 MG TAB PO SCH (09:20)
[2023-03-11] MEDS: ACETAMINOPHEN TAB 650MG DOSE (2X325MG) PO PRN (15:55)
[2023-03-11] MEDS ORDERED: OLANZapine INTRAMUSCULAR 10MG VIAL IM PRN ×2 (17:15→17:30)
[2023-03-11] MEDS: RIVAROXABAN 10MG TAB (XARELTO) PO SCH (18:02)
[2023-03-11] MEDS ORDERED: HALOPERIDOL 5MG/ML 1ML VIAL IM PRN (20:15)
[2023-03-11] MEDS ORDERED: HALOPERIDOL 5MG/ML 1ML VIAL IM ONE (23:40)
[2023-03-12] VITALS (10 sets, daily range): BP systolic 140–190; BP diastolic 66–98; TEMP 98.1–98.4; O2SAT 87–99
[2023-03-12] MEDS: MORPHINE 4 MG/ML 1ML VIAL IV PRN ×2 (03:14→06:32)
[2023-03-12 05:50] LABS: HEMATOCRIT 34.5 % (36.0-47.0); HEMOGLOBIN 11.1 g/dl (12.0-15.5); MEAN CORPUSCULAR HEMOGLOBIN 30.1 pg (27.0-33.0); MEAN CORPUSCULAR HGB CONC 32.2 g/dl (32.0-36.5); MEAN CORPUSCULAR VOLUME 93.5 fl (80.0-96.0); PLATELET COUNT, AUTOMATED 231 10^3/uL (150-450); RED BLOOD COUNT 3.69 10^6/uL (4.00-5.40)
[2023-03-12 06:08] LABS: INR 1.51; PROTHROMBIN TIME 18.5 SECONDS (12.5-14.5)
[2023-03-12 06:18] LABS: ALBUMIN 3.2 G/DL (3.2-5.2); ALKALINE PHOSPHATASE 78 U/L (46-116); ALT/SGPT 15 U/L (7.0-40); AST/SGOT 34 U/L (<34); BILIRUBIN,TOTAL 0.6 MG/DL (0.3-1.2); BLOOD UREA NITROGEN 14 MG/DL (9-23); CALCIUM LEVEL 9.1 MG/DL (8.3-10.6); CARBON DIOXIDE LEVEL 30 MMOL/L (20-31); CHLORIDE LEVEL 108 MMOL/L (98-107); CREATININE FOR GFR 0.68 MG/DL (0.55-1.30); GLOMERULAR FILTRATION RATE > 60.0 (>32); GLUCOSE, FASTING 101 MG/DL (74-106); PHOSPHORUS LEVEL 2.8 MG/DL (2.4-5.1); POTASSIUM SERUM 3.6 MMOL/L (3.5-5.1); SODIUM LEVEL 144 MMOL/L (136-145); TOTAL PROTEIN 6.1 G/DL (5.7-8.2)
[2023-03-12] MEDS: LR 1,000 ML IV SCH ×2 (07:45→17:20)
[2023-03-12] MEDS: amLODIPine 5 MG TAB PO SCH (08:50)
[2023-03-12] MEDS ORDERED: LOSARTAN 25 MG TAB PO SCH (09:00)
[2023-03-12] MEDS: haloperidoL 0.5 MG TAB PO SCH ×2 (12:18→21:00)
[2023-03-12] MEDS ORDERED: amLODIPine 5 MG TAB PO ONE (14:20)
[2023-03-12] MEDS: RIVAROXABAN 10MG TAB (XARELTO) PO SCH (17:20)
[2023-03-12] MEDS: LOSARTAN 50MG TABLET PO SCH (21:00)
[2023-03-12] MEDS: KETOROLAC 30 MG/ML 1ML VIAL IV SCH (21:01)
[2023-03-13] MEDS: LR 1,000 ML IV SCH (03:09)
[2023-03-13] MEDS: KETOROLAC 30 MG/ML 1ML VIAL IV SCH ×3 (03:42→20:04)
[2023-03-13 05:50] LABS: HEMATOCRIT 28.1 % (36.0-47.0); MEAN CORPUSCULAR HEMOGLOBIN 29.6 pg (27.0-33.0); MEAN CORPUSCULAR HGB CONC 31.3 g/dl (32.0-36.5); MEAN CORPUSCULAR VOLUME 94.6 fl (80.0-96.0); PLATELET COUNT, AUTOMATED 230 10^3/uL (150-450); RED BLOOD COUNT 2.97 10^6/uL (4.00-5.40); WHITE BLOOD COUNT 6.8 10^3/uL (4.0-10.0)
[2023-03-13 05:56] LABS: HEMOGLOBIN 8.8 g/dl (12.0-15.5)
[2023-03-13 05:59] LABS: INR 1.35; PROTHROMBIN TIME 16.9 SECONDS (12.5-14.5)
[2023-03-13 06:14] LABS: ALBUMIN 2.3 G/DL (3.2-5.2); ALKALINE PHOSPHATASE 63 U/L (46-116); ALT/SGPT 10 U/L (7.0-40); AST/SGOT 27 U/L (<34); BILIRUBIN,TOTAL 0.7 MG/DL (0.3-1.2); BLOOD UREA NITROGEN 14 MG/DL (9-23); CARBON DIOXIDE LEVEL 31 MMOL/L (20-31); CHLORIDE LEVEL 106 MMOL/L (98-107); GLOMERULAR FILTRATION RATE > 60.0 (>32); GLUCOSE, FASTING 82 MG/DL (74-106); PHOSPHORUS LEVEL 2.9 MG/DL (2.4-5.1); POTASSIUM SERUM 3.7 MMOL/L (3.5-5.1); SODIUM LEVEL 141 MMOL/L (136-145); TOTAL PROTEIN 4.8 G/DL (5.7-8.2)
[2023-03-13 06:15] VITALS: BP 140/70; TEMP 97.9; O2SAT 99
[2023-03-13] MEDS ORDERED: haloperidoL 0.5 MG TAB PO SCH (07:45)
[2023-03-13] MEDS: amLODIPine 5 MG TAB PO SCH (09:00)
[2023-03-13 11:22] VITALS: O2SAT 96
[2023-03-13 14:47] VITALS: BP 110/70; TEMP 97.9; O2SAT 98
[2023-03-13] MEDS: RIVAROXABAN 10MG TAB (XARELTO) PO SCH (17:33)
[2023-03-13] MEDS: LOSARTAN 50MG TABLET PO SCH (19:53)
[2023-03-13] MEDS: haloperidoL 0.5 MG TAB PO SCH (20:04)
[2023-03-13 21:00] VITALS: BP 139/69; TEMP 97.9; O2SAT 93
[2023-03-13 22:47] VITALS: O2SAT 93
[2023-03-14] MEDS: KETOROLAC 30 MG/ML 1ML VIAL IV SCH (04:16)
[2023-03-14 06:00] VITALS: BP 143/55; TEMP 97.8; O2SAT 93
[2023-03-14 06:37] LABS: HEMOGLOBIN 9.6 g/dl (12.0-15.5); MEAN CORPUSCULAR HEMOGLOBIN 30.3 pg (27.0-33.0); MEAN CORPUSCULAR VOLUME 94.6 fl (80.0-96.0); PLATELET COUNT, AUTOMATED 258 10^3/uL (150-450); RED BLOOD COUNT 3.17 10^6/uL (4.00-5.40); WHITE BLOOD COUNT 6.3 10^3/uL (4.0-10.0)
[2023-03-14 06:52] LABS: INR 1.07; PROTHROMBIN TIME 14.1 SECONDS (12.5-14.5)
[2023-03-14 06:58] LABS: ALBUMIN 2.4 G/DL (3.2-5.2); ALKALINE PHOSPHATASE 70 U/L (46-116); ALT/SGPT 9 U/L (7.0-40); AST/SGOT 22 U/L (<34); BILIRUBIN,TOTAL 0.4 MG/DL (0.3-1.2); BLOOD UREA NITROGEN 27 MG/DL (9-23); CALCIUM LEVEL 8.2 MG/DL (8.3-10.6); CARBON DIOXIDE LEVEL 30 MMOL/L (20-31); CHLORIDE LEVEL 108 MMOL/L (98-107); CREATININE FOR GFR 0.82 MG/DL (0.55-1.30); GLOMERULAR FILTRATION RATE > 60.0 (>32); GLUCOSE, FASTING 108 MG/DL (74-106); PHOSPHORUS LEVEL 3.3 MG/DL (2.4-5.1); POTASSIUM SERUM 4.1 MMOL/L (3.5-5.1); SODIUM LEVEL 144 MMOL/L (136-145); TOTAL PROTEIN 4.9 G/DL (5.7-8.2)
[2023-03-14] MEDS: MIRALAX *UNIT DOSE* 17GM PACKET PO SCH (09:13)
[2023-03-14] MEDS: SENOKOT S TAB PO SCH ×2 (09:13→21:14)
[2023-03-14] MEDS: MOM 30ML SUSPENSION UDC PO SCH (09:13)
[2023-03-14] MEDS: amLODIPine 5 MG TAB PO SCH (09:14)
[2023-03-14] MEDS ORDERED: MORPHINE 4 MG/ML 1ML VIAL IV PRN (10:00)
[2023-03-14] MEDS: RIVAROXABAN 10MG TAB (XARELTO) PO SCH (18:09)
[2023-03-14 18:17] VITALS: O2SAT 99
[2023-03-14] MEDS: haloperidoL 0.5 MG TAB PO SCH (21:15)
[2023-03-14] MEDS: LOSARTAN 50MG TABLET PO SCH (21:15)
[2023-03-15] MEDS: ACETAMINOPHEN TAB 650MG DOSE (2X325MG) PO PRN (00:46)
[2023-03-15 04:00] VITALS: BP 152/89; TEMP 98.2; O2SAT 95
[2023-03-15 05:50] LABS: HEMATOCRIT 30.2 % (36.0-47.0); HEMOGLOBIN 9.5 g/dl (12.0-15.5); MEAN CORPUSCULAR HEMOGLOBIN 29.6 pg (27.0-33.0); MEAN CORPUSCULAR HGB CONC 31.5 g/dl (32.0-36.5); MEAN CORPUSCULAR VOLUME 94.1 fl (80.0-96.0); PLATELET COUNT, AUTOMATED 266 10^3/uL (150-450); RED BLOOD COUNT 3.21 10^6/uL (4.00-5.40)
[2023-03-15 06:03] LABS: INR 1.19; PROTHROMBIN TIME 15.4 SECONDS (12.5-14.5)
[2023-03-15 06:11] LABS: ALBUMIN 2.7 G/DL (3.2-5.2); ALKALINE PHOSPHATASE 70 U/L (46-116); ALT/SGPT 12 U/L (7.0-40); AST/SGOT 23 U/L (<34); BILIRUBIN,TOTAL 0.7 MG/DL (0.3-1.2); BLOOD UREA NITROGEN 18 MG/DL (9-23); CALCIUM LEVEL 8.4 MG/DL (8.3-10.6); CARBON DIOXIDE LEVEL 28 MMOL/L (20-31); CHLORIDE LEVEL 107 MMOL/L (98-107); CREATININE FOR GFR 0.59 MG/DL (0.55-1.30); GLOMERULAR FILTRATION RATE > 60.0 (>32); GLUCOSE, FASTING 92 MG/DL (74-106); PHOSPHORUS LEVEL 3.4 MG/DL (2.4-5.1); SODIUM LEVEL 142 MMOL/L (136-145); TOTAL PROTEIN 5.3 G/DL (5.7-8.2)
[2023-03-15] MEDS: MIRALAX *UNIT DOSE* 17GM PACKET PO SCH (09:00)
[2023-03-15] MEDS: MOM 30ML SUSPENSION UDC PO SCH (09:00)
[2023-03-15] MEDS: SENOKOT S TAB PO SCH ×2 (09:01→22:28)
[2023-03-15] MEDS: amLODIPine 5 MG TAB PO SCH (09:01)
[2023-03-15] MEDS: RIVAROXABAN 10MG TAB (XARELTO) PO SCH (17:01)
[2023-03-15] MEDS: LOSARTAN 50MG TABLET PO SCH (22:28)
[2023-03-15] MEDS: haloperidoL 0.5 MG TAB PO SCH (22:28)
[2023-03-16 05:57] LABS: HEMATOCRIT 31.8 % (36.0-47.0); HEMOGLOBIN 9.9 g/dl (12.0-15.5); MEAN CORPUSCULAR HEMOGLOBIN 29.6 pg (27.0-33.0); MEAN CORPUSCULAR HGB CONC 31.1 g/dl (32.0-36.5); MEAN CORPUSCULAR VOLUME 95.2 fl (80.0-96.0); PLATELET COUNT, AUTOMATED 283 10^3/uL (150-450); RED BLOOD COUNT 3.34 10^6/uL (4.00-5.40); WHITE BLOOD COUNT 7.4 10^3/uL (4.0-10.0)
[2023-03-16 06:00] VITALS: BP 148/81; TEMP 98.2; O2SAT 95
[2023-03-16 06:13] LABS: INR 1.25
[2023-03-16 06:31] LABS: ALBUMIN 2.7 G/DL (3.2-5.2); ALKALINE PHOSPHATASE 73 U/L (46-116); ALT/SGPT 12 U/L (7.0-40); AST/SGOT 19 U/L (<34); BILIRUBIN,TOTAL 0.6 MG/DL (0.3-1.2); BLOOD UREA NITROGEN 19 MG/DL (9-23); CALCIUM LEVEL 8.7 MG/DL (8.3-10.6); CARBON DIOXIDE LEVEL 29 MMOL/L (20-31); CHLORIDE LEVEL 105 MMOL/L (98-107); CREATININE FOR GFR 0.61 MG/DL (0.55-1.30); GLOMERULAR FILTRATION RATE > 60.0 (>32); GLUCOSE, FASTING 87 MG/DL (74-106); PHOSPHORUS LEVEL 3.6 MG/DL (2.4-5.1); POTASSIUM SERUM 4.3 MMOL/L (3.5-5.1); SODIUM LEVEL 141 MMOL/L (136-145); TOTAL PROTEIN 5.4 G/DL (5.7-8.2)
[2023-03-16] MEDS ORDERED: XARE10TA PO (09:53)
[2023-03-16] MEDS ORDERED: AMLO1TAB24 PO (09:53)
[2023-03-16] MEDS ORDERED: ASPI81TAEC PO (09:53)
[2023-03-16] MEDS ORDERED: LOSA-528 PO (09:53)
[2023-03-16] MEDS: SENOKOT S TAB PO SCH (10:22)
[2023-03-16 10:23] VITALS: BP 148/81
[2023-03-16] MEDS: amLODIPine 5 MG TAB PO SCH (10:23)
[2023-03-16] MEDS: MIRALAX *UNIT DOSE* 17GM PACKET PO SCH (10:23)
[2023-03-16] MEDS: MOM 30ML SUSPENSION UDC PO SCH (10:23)
[2023-03-16] MEDS ORDERED: MOM30SS2 PO (10:51)
[2023-03-16] MEDS ORDERED: SENN-52 PO (10:51)
[2023-03-25] MEDS ORDERED: ASPIRIN 81MG ENTERIC TABLET PO SCH (09:00)
== END 2023-03-16 11:39 | disposition home health service (06) | DRG 522 ==
LOC: EDBD 08:55 → M ED 08:55 → M ED INP 15:33 → M MSPAV 17:14
PROVIDERS: ADMIT Internal Medicine; ATTEND Internal Medicine
PROC: 0SRR0J9 Replacement of Right Hip Joint, Femoral Surface with Synthetic Substitute, Cemented, Open Approach (ICD-10-PCS; principal; 2023-03-11)
DX: S72.001A Fracture of unspecified part of neck of right femur, initial encounter for closed fracture (principal); F05 Delirium due to known physiological condition; G93.40 Encephalopathy, unspecified; D62 Acute posthemorrhagic anemia; E78.5 Hyperlipidemia, unspecified; D50.9 Iron deficiency anemia, unspecified; F03.90 Unspecified dementia, unspecified severity, without behavioral disturbance, psychotic disturbance, mood disturbance, and anxiety; I10 Essential (primary) hypertension; K59.00 Constipation, unspecified; I16.0 Hypertensive urgency; R00.1 Bradycardia, unspecified; Z66 Do not resuscitate; M25.512 Pain in left shoulder; R73.9 Hyperglycemia, unspecified; Z86.73 Personal history of transient ischemic attack (TIA), and cerebral infarction without residual deficits; Z85.3 Personal history of malignant neoplasm of breast; Z92.3 Personal history of irradiation; Z92.21 Personal history of antineoplastic chemotherapy; Z90.13 Acquired absence of bilateral breasts and nipples; W01.0XXA Fall on same level from slipping, tripping and stumbling without subsequent striking against object, initial encounter; Y92.009 Unspecified place in unspecified non-institutional (private) residence as the place of occurrence of the external cause; Z20.822 Contact with and (suspected) exposure to COVID-19

== ENCOUNTER → 2023-03-24 | Outpatient (CLI) | payer MEDICARE ==
[~2023-03-24] MED LIST changes: +AMLO1TAB24 PO; +ASPI81TAEC PO; +LOSA-528 PO; +MOM30SS2 PO; +XARE10TA PO
== END ==
LOC: M SOG 07:54
PROVIDERS: ATTEND Orthopaedic Surgery
DX: Z53.9 Procedure and treatment not carried out, unspecified reason (principal)

== ENCOUNTER → 2023-05-31 | Outpatient (CLI) | payer MEDICARE | LOC: M SOG 09:10 | PROVIDERS: ATTEND Orthopaedic Surgery | DX: Z96.641 Presence of right artificial hip joint (principal) ==

== ENCOUNTER 2025-05-19 13:25 | Observation (INO) | payer MEDICARE ==
[~2025-05-19] VITALS: Ht 157.5 cm; Wt 74.0 kg
[2025-05-19 15:20] LABS: KETONE, URINE AUTO RFX NEGATIVE (NEGATIVE); LEUKOCYTE ESTERASE UR AUTO RFX NEGATIVE (NEGATIVE); MUCUS, URINE RFX SMALL (NEGATIVE); NITRITE, URINE AUTO RFX NEGATIVE (NEGATIVE); RBC, URINE AUTO RFX 0 /HPF (0-3); SQUAM EPITHELIAL CELL UR AURFX 2 /HPF (0-6); WBC, URINE AUTO RFX 2 /HPF (0-3)
[2025-05-19 15:37] LABS: BASO # 0.0 10^3/uL (0.0-0.2); BASO % 0.3 % (0.0-1.0); EOS # 0.1 10^3/uL (0.0-0.5); EOS % 0.7 % (0.0-3.0); LYMPH # 1.9 10^3/uL (1.5-5.0); LYMPH % 19.3 % (24.0-44.0); MONO # 0.7 10^3/uL (0.0-0.8); MONO % 7.3 % (2.0-8.0); NEUTROPHILS # 6.9 10^3/uL (1.5-8.5); NEUTROPHILS % 71.8 % (36.0-66.0); PLATELET COUNT, AUTOMATED 276 10^3/uL (150-450)
[2025-05-19 16:06] LABS: CALCIUM LEVEL 9.4 MG/DL (8.3-10.6); CARBON DIOXIDE LEVEL 28.0 MMOL/L (20-31); CHLORIDE LEVEL 104.0 MMOL/L (98-107); CREATININE FOR GFR 0.68 MG/DL (0.55-1.30); GLOMERULAR FILTRATION RATE 85.8 (>32); POTASSIUM SERUM 4.3 MMOL/L (3.5-5.1); SODIUM LEVEL 142.0 MMOL/L (136-145)
[2025-05-19] MEDS ORDERED: QUET1TAB17 PO (19:46)
[2025-05-19] MEDS ORDERED: HOME MED LIST COMPLETE! XX SCH (19:50)
[2025-05-20] MEDS ORDERED: MAALOX 30 ML SUSP *UDC PO PRN (03:50)
[2025-05-20] MEDS ORDERED: MOM 30 ML SUSPENSION UDC PO PRN (03:50)
[2025-05-20 06:22] LABS: INR 0.98; INR 1.02
[2025-05-20 06:46] LABS: ALT/SGPT 17.0 U/L (7.0-40); AST/SGOT 26.0 U/L (<34)
[2025-05-20 06:55] LABS: CK-MB VALUE MASS 6.1 NG/ML (<3.6)
[2025-05-20 07:01] LABS: CPK CREATINE PHOSPHOKINASE 230.0 U/L (34-145); MB/CK RELATIVE INDEX 2.65 (< OR =4)
[2025-05-20 07:18] LABS: CHOLESTEROL LEVEL 268.0 MG/DL (<200); CHOLESTEROL RISK RATIO 3.01 (<5); LDL CHOLESTEROL 159.6 MG/DL (<100); NON-HDL-C 179.2 MG/DL; TRIGLYCERIDES LEVEL 98.0 MG/DL (<150)
[2025-05-20 07:58] LABS: BASO # 0.0 10^3/uL (0.0-0.2); BASO % 0.5 % (0.0-1.0); EOS # 0.1 10^3/uL (0.0-0.5); EOS % 2.2 % (0.0-3.0); LYMPH # 1.5 10^3/uL (1.5-5.0); LYMPH % 24.4 % (24.0-44.0); MONO # 0.6 10^3/uL (0.0-0.8); MONO % 9.1 % (2.0-8.0); NEUTROPHILS # 3.8 10^3/uL (1.5-8.5); NEUTROPHILS % 63.5 % (36.0-66.0); PLATELET COUNT, AUTOMATED 266 10^3/uL (150-450)
[2025-05-20 07:59] LABS: CALCIUM LEVEL 8.9 MG/DL (8.3-10.6); CARBON DIOXIDE LEVEL 26.0 MMOL/L (20-31); CHLORIDE LEVEL 105.0 MMOL/L (98-107); CREATININE FOR GFR 0.64 MG/DL (0.55-1.30); GLOMERULAR FILTRATION RATE 87.1 (>32); MAGNESIUM LEVEL 2.0 MG/DL (1.8-2.4); POTASSIUM SERUM 3.8 MMOL/L (3.5-5.1); SODIUM LEVEL 139.0 MMOL/L (136-145)
[2025-05-20 10:16] LABS: ESTIMATED AVERAGE GLUCOSE 114.0 MG/DL (60-110)
[2025-05-20 11:36] LABS: VITAMIN B12 LEVEL 357.0 PG/ML (211-911)
[2025-05-20 12:00] VITALS: BP 183/79; TEMP 97.2; O2SAT 95
[2025-05-20] MEDS: amLODIPine 5 MG TAB PO ONE (12:01)
[2025-05-20] MEDS: NS (Normal Saline) 0.9% 1,000 ML IV SCH (15:24)
[2025-05-20 16:30] VITALS: BP 157/89; TEMP 97.2; O2SAT 99
[2025-05-20] MEDS: D5W/0.45% SODIUM CHLORIDE 1,000 ML IV SCH (16:53)
[2025-05-20 21:03] VITALS: BP 148/64; TEMP 97; O2SAT 98
[2025-05-20 21:17] VITALS: BP 148/64
[2025-05-20] MEDS: LOSARTAN 25 MG TAB PO SCH (21:17)
[2025-05-20] MEDS: amLODIPine 5 MG TAB PO SCH (21:18)
[2025-05-20] MEDS: ACETAMINOPHEN 325 MG TAB PO PRN (21:29)
[2025-05-20 23:37] VITALS: BP 130/59; TEMP 97.2; O2SAT 96
[2025-05-21 06:18] LABS: BASO # 0.1 10^3/uL (0.0-0.2); BASO % 0.9 % (0.0-1.0); EOS # 0.2 10^3/uL (0.0-0.5); EOS % 3.0 % (0.0-3.0); LYMPH # 1.8 10^3/uL (1.5-5.0); LYMPH % 30.9 % (24.0-44.0); MONO # 0.6 10^3/uL (0.0-0.8); MONO % 9.6 % (2.0-8.0); NEUTROPHILS # 3.1 10^3/uL (1.5-8.5); NEUTROPHILS % 55.1 % (36.0-66.0); PLATELET COUNT, AUTOMATED 260 10^3/uL (150-450)
[2025-05-21 06:52] LABS: CALCIUM LEVEL 8.6 MG/DL (8.3-10.6); CARBON DIOXIDE LEVEL 30.0 MMOL/L (20-31); CHLORIDE LEVEL 104.0 MMOL/L (98-107); CREATININE FOR GFR 1.02 MG/DL (0.55-1.30); GLOMERULAR FILTRATION RATE 54.3 (>32); MAGNESIUM LEVEL 1.9 MG/DL (1.8-2.4); POTASSIUM SERUM 4.3 MMOL/L (3.5-5.1); SODIUM LEVEL 143.0 MMOL/L (136-145)
[2025-05-21 08:00] VITALS: BP 127/57; TEMP 97.2; O2SAT 96
[2025-05-21] MEDS ORDERED: ACETAMINOPHEN 325 MG TAB PO PRN (08:50)
[2025-05-21] MEDS ORDERED: SCOPOLAMINE 1MG TRANSDERMAL PATCH TOP PRN (08:50)
[2025-05-21] MEDS ORDERED: ONDANSETRON 4MG ORAL DISINTEGRATING TAB PO PRN (08:50)
[2025-05-21] MEDS ORDERED: MORPHINE 10 MG/0.5 ML ORAL CONCENTRATE SOLUTION U/D SL PRN (08:50)
[2025-05-21] MEDS ORDERED: HYOSCYAMINE SULFATE 0.125 MG SUBL TABLET PO PRN (08:50)
[2025-05-21] MEDS ORDERED: BISACODYL 10 MG SUPP PR PRN (08:50)
[2025-05-21] MEDS ORDERED: ATROPINE SULFATE 1% OPHTH SOLN 2 ML BTL SL PRN (08:50)
[2025-05-21] MEDS ORDERED: HYOS125TA PO ×2 (11:43→16:11)
[2025-05-21] MEDS ORDERED: ATIV1TAB10 PO ×2 (11:43→16:11)
[2025-05-21] MEDS ORDERED: AMLO1TAB24 PO (11:43)
[2025-05-21] MEDS ORDERED: MORP1SOL5 PO ×2 (11:43→16:11)
[2025-05-21] MEDS: LORazepam 1 MG TAB PO PRN (14:57)
== END 2025-05-21 18:03 | disposition home or self-care (01) ==
LOC: M ED 13:25 → M ED INP 05-20 03:47 → INTOOBSV 05-20 03:47 → M MSPAV 05-20 16:28
PROVIDERS: ADMIT Student in an Organized Health Care Education/Training Program; ATTEND Internal Medicine
DX: I63.9 Cerebral infarction, unspecified (principal); G30.9 Alzheimer's disease, unspecified; F02.80 Dementia in other diseases classified elsewhere, unspecified severity, without behavioral disturbance, psychotic disturbance, mood disturbance, and anxiety; E78.5 Hyperlipidemia, unspecified; I10 Essential (primary) hypertension; D50.9 Iron deficiency anemia, unspecified; I16.0 Hypertensive urgency; G81.94 Hemiplegia, unspecified affecting left nondominant side; Z85.3 Personal history of malignant neoplasm of breast; Z92.3 Personal history of irradiation; Z92.21 Personal history of antineoplastic chemotherapy; Z90.13 Acquired absence of bilateral breasts and nipples; Z86.73 Personal history of transient ischemic attack (TIA), and cerebral infarction without residual deficits; Z96.641 Presence of right artificial hip joint; Z74.1 Need for assistance with personal care; Z66 Do not resuscitate; Z79.899 Other long term (current) drug therapy
CPT/HCPCS: 36415; 70450; 71045; 74018; 80048; 80061; 80076; 81001; 82550; 82553; 82607; 82746; 83036; 83735; 84443; 84484; 85025; 85610; 93005; 96374; 99285; G0378; J2060